=== PATIENT | female | born 1980 | race Two or more races ===

== ENCOUNTER 2018-08-08 13:58 | Emergency (ER) | payer SELFPAY ==
--- NOTE | 2018-08-08 14:21 | PDOC ---
Rapid Medical Evaluation Chief Complaint: Back Pain Time Seen by Provider: 08/08/18 14:18 Medical Evaluation: 08/08/18 14:18 I have performed a brief in-person evaluation of this patient. The patient presents with a chief complaint of: buttock/ coccyx pain s/p slip on oil/ onto buttock Pertinent physical exam findings: pain to coccyx I have ordered the following: UCG The patient will proceed to the ED for further evaluation. 08/08/18 14:19 Discharge Disposition - Diagnosis Contusion of right knee, Contusion of coccyx - Discharge Dispostion Disposition: HOME Condition at time of disposition: Stable - Referrals Referrals: Roel Richardson MD [Staff Physician] - - Patient Instructions Printed Discharge Instructions: Contusion Additional Instructions: He may take Tylenol and Motrin as directed for pain. Return to the emergency room should symptoms worsen or go unresolved and follow-up with orthopedic surgery in spine surgery in 2-3 days for further evaluation and treatment options. - Post Discharge Activity Work/School Note: Back to Work
[2018-08-08 14:22] VITALS: BP 143/80; PULSE 66; TEMP 97.8; BMI 23.1
[2018-08-08] MEDS ORDERED: KETOROLAC TROMETHAMINE 60 MG/2 ML VIAL IM ONE (14:49)
[2018-08-08] MEDS ORDERED: KETOROLAC TROMETHAMINE 60 MG/2 ML VIAL ONE (14:50)
--- NOTE | 2018-08-08 16:32 | PDOC ---
History of Present Illness - General Chief Complaint: Back Pain Stated Complaint: FALL Time Seen by Provider: 08/08/18 14:18 - History of Present Illness Initial Comments: 08/08/18 16:30 37-year-old female without comorbidities presents for evaluation of by Dr. jackson and right knee pain after a slip and fall today. She states she was using a backpack blower slipped on wet surface and fell onto her buttocks. She complains of sacral and coccyx pain as well as right knee pain. Past History - Past Medical History Allergies/Adverse Reactions: Allergies Allergy/AdvReac Type Severity Reaction Status Date / Time No Known Allergies Allergy Verified 08/08/18 14:22 Home Medications: Ambulatory Orders NK [No Known Home Medication] 08/08/18 COPD: No - Suicide/Smoking/Psychosocial Hx Smoking History: Never smoked Review of Systems - Review of Systems Musculoskeletal: Yes: See HPI, Back Pain, Joint Pain *Physical Exam - Vital Signs Last Vital Signs Temp Pulse Resp BP Pulse Ox 97.8 F 66 18 143/80 99 08/08/18 14:18 08/08/18 14:18 08/08/18 14:18 08/08/18 14:18 08/08/18 14:18 - Physical Exam Comments: 08/08/18 16:31 Lumbar spine and sacral area skin color and temperature are normal range of motion is limited there is diffuse tenderness about the sacrum. Decreased strength in bilateral lower extremities without gross sensorimotor deficits. Range of motion is decreased. Decreased strength is most likely secondary to pain she has no sensory deficits. Right knee skin color and temperature are normal range of motion 0-90 she has mild medial joint line tenderness no evidence of instability no gross sensorimotor deficits thighs and calves are soft and nontender she's neurovascularly intact. Moderate Sedation - Procedure Monitoring Vital Signs: Procedure Monitoring Vital Signs Temperature 97.8 F 08/08/18 14:18 Pulse Rate 66 08/08/18 14:18 Respiratory Rate 18 08/08/18 14:18 Blood Pressure 143/80 08/08/18 14:18 O2 Sat by Pulse Oximetry (%) 99 08/08/18 14:18 ED Treatment Course - ADDITIONAL ORDERS Additional order review: Laboratory Results 08/08/18 14:20 Urine HCG, Qual Negative - RADIOLOGY Radiology Studies Ordered: Category Date Time Status COCCYX [RAD] Stat Radiology 08/08/18 14:48 Completed KNEE 3 POS-RIGHT [RAD] Stat Radiology 08/08/18 14:48 Completed SACRUM [RAD] Stat Radiology 08/08/18 14:48 Completed - Medications Given in the ED: ED Medications Discontinued Medications Generic Name Dose Route Start Last Admin Trade Name Jose Armando PRN Reason Stop Dose Admin Ketorolac Tromethamine 60 mg 08/08/18 14:49 08/08/18 14:53 Toradol Injection - IM 08/08/18 14:50 60 mg ONCE ONE Administration *DC/Admit/Observation/Transfer Diagnosis at time of Disposition: Contusion of right knee, Contusion of coccyx - Discharge Dispostion Disposition: HOME Condition at time of disposition: Stable Decision to Admit order: No - Referrals Referrals: Roel Richardson MD [Staff Physician] - - Patient Instructions Printed Discharge Instructions: Contusion Additional Instructions: He may take Tylenol and Motrin as directed for pain. Return to the emergency room should symptoms worsen or go unresolved and follow-up with orthopedic surgery in spine surgery in 2-3 days for further evaluation and treatment options. - Post Discharge Activity
== END 2018-08-08 16:36 | disposition home or self-care (01) ==
LOC: JERFT 13:58
PROC: 3E0233Z Introduction of Anti-inflammatory into Muscle, Percutaneous Approach (ICD-10-PCS; principal; 2018-08-08)
DX: S30.0XXA Contusion of lower back and pelvis, initial encounter (principal); T14.8XXA Other injury of unspecified body region, initial encounter; W01.0XXA Fall on same level from slipping, tripping and stumbling without subsequent striking against object, initial encounter; Y93.89 Activity, other specified; Y92.89 Other specified places as the place of occurrence of the external cause
CPT/HCPCS: 72220-TC-FY; 73562-TC-RT-FY; 84703; 99281-25